=== PATIENT | male | born 1985 | race Caucasian/White ===

== ENCOUNTER 2018-05-05 22:37 | Emergency (ER) | payer OTHER ==
[~2018-05-05] VITALS: Ht 165.1 cm; Wt 69.8 kg
[~2018-05-05 22:37] MED LIST: BENZTROPINE MESY2 MG PO; CARBAMAZEPINE200 M2 PO; DEPAKOTE ER500 MG PO; FLUPHENAZINE 5 M5 MG PO; HALOPERIDOL5 MG/1 M1 IJ; LORAZEPAM 22 MG/1 ML IM; TRAZODONE HCL50 MG PO; ZOLOFT50 MG PO
[2018-05-06 00:32] VITALS: BP 129/91
== END 2018-05-06 00:35 | disposition home or self-care (01) ==
LOC: ER 22:37
DX: S01.01XA Laceration without foreign body of scalp, initial encounter (principal); F17.210 Nicotine dependence, cigarettes, uncomplicated; Z88.0 Allergy status to penicillin; W18.30XA Fall on same level, unspecified, initial encounter; Y93.89 Activity, other specified; Y92.89 Other specified places as the place of occurrence of the external cause; Y99.8 Other external cause status